=== PATIENT | female | born 1950 | race Two or more races ===

== ENCOUNTER 2018-09-23 15:29 | Outpatient (CLI) | payer OTHER ==
[~2018-09-23 15:29] MED LIST: AMBIEN10 MG; SYNTHROID75 MCG; ZOCOR20 MG
== END 2018-09-23 15:37 | disposition home or self-care (01) ==
LOC: LAB 15:29
DX: B96.29 Other Escherichia coli [E. coli] as the cause of diseases classified elsewhere (principal)

== ENCOUNTER 2018-10-03 10:57 | Outpatient (CLI) | payer OTHER | END 2018-10-03 11:01 | disposition home or self-care (01) | LOC: TOM 10:57 | DX: N39.0 Urinary tract infection, site not specified (principal) ==